=== PATIENT | male | born 1990 ===

== ENCOUNTER 2024-12-05 21:12 | Emergency (ER) | payer SELFPAY ==
[~2024-12-05] VITALS: Ht 177.8 cm; Wt 91.0 kg
[2024-12-05 21:14] VITALS: TEMP 97.6
[2024-12-05] MEDS: TETanus/Pertussis (Acell)/Diphther VAC/PF (Tdap-Adult) 0.5ml syringe IMVAC ONE (21:46)
[2024-12-05 22:18] LABS: BASOPHILS % (AUTO) 0.4 % (0-1); EOSINOPHILS # (AUTO) 0.1 X10'3 (0-0.9); EOSINOPHILS % (AUTO) 0.7 % (0-6); HEMATOCRIT 45.7 % (42.0-52.0); HEMOGLOBIN 15.7 g/dl (14.0-17.9); LYMPHOCYTES % (AUTO) 25.8 % (21-51); MEAN CORPUSCULAR HEMOGLOBIN 31.2 PG (27.0-31.0); MEAN CORPUSCULAR HGB CONC 34.2 g/dL (33.0-36.5); MEAN CORPUSCULAR VOLUME 91.1 FL (78-98); MEAN PLATELET VOLUME 8.4 FL (7.4-10.4); MONOCYTES # (AUTO) 0.5 X10'3 (0-0.9); MONOCYTES % (AUTO) 5.8 % (2-12); NEUTROPHILS # (AUTO) 5.2 X10'3 (1.8-7.7); NEUTROPHILS % (AUTO) 67.3 % (42-75); PLATELET COUNT 269 X10'3 (140-440); RED BLOOD COUNT 5.02 X10'6 (4.70-6.10); WHITE BLOOD COUNT 7.7 X10'3 (4.5-11.0)
[2024-12-05 22:29] LABS: APTT 26 SECONDS (22-32); PROTHROMBIN TIME 10.2 SECONDS (9.0-12.0)
[2024-12-05 22:38] LABS: ANION GAP 17 (8-16); BLOOD UREA NITROGEN 16 MG/DL (7-18); CALCIUM 8.6 MG/DL (8.5-10.1); CHLORIDE 107 MMOL/L (99-107); CREATINE KINASE 309 U/L (39-308); CREATININE 1.45 MG/DL (0.60-1.10); ETHANOL 169 MG/DL (<10); SODIUM 147 MMOL/L (135-145); TOTAL CARBON DIOXIDE 23.2 MMOL/L (24-32); eCRCL 73 ML/MIN; eGFR 55 ML/MIN
[2024-12-05 22:48] LABS: GLUCOSE 104 MG/DL (70-104); POTASSIUM 3.4 MMOL/L (3.5-5.1)
[2024-12-05] MEDS: LIDOcaine 1% W/epiNEPHrine 1:100,000 20ml vial IJ ONE (23:30)
[2024-12-05] MEDS ORDERED: AMOX-117 PO (23:40)
[2024-12-05] MEDS: amox tr/potassium clavulanate 875/125mg TAB PO ONE (23:46)
[2024-12-05] MEDS: HYDROcodone/acetaminophen 10/325mg tab PO ONE (23:47)
[2024-12-05 23:52] VITALS: BP 126/85; PULSE 94; RESP 18; O2SAT 96
== END 2024-12-06 00:05 ==
LOC: ER 21:13
DX: S00.83XA Contusion of other part of head, initial encounter (principal); Z02.89 Encounter for other administrative examinations; N28.9 Disorder of kidney and ureter, unspecified; F10.129 Alcohol abuse with intoxication, unspecified; F17.290 Nicotine dependence, other tobacco product, uncomplicated; Y04.0XXA Assault by unarmed brawl or fight, initial encounter; Y93.89 Activity, other specified; Y92.89 Other specified places as the place of occurrence of the external cause; Y99.8 Other external cause status; Y90.9 Presence of alcohol in blood, level not specified
CPT/HCPCS: 12011; 36415; 70450; 70486; 71045; 72125; 80048; 80320; 82550; 84484; 85025; 85610; 85730; 90471; 90715; 93005; 99285; J3490; L0172